=== PATIENT | female | born 1935 ===

== ENCOUNTER → 2018-06-15 13:24 | Outpatient (REF) | payer MEDICARE, SELFPAY ==
[2018-06-15 14:48] LABS: Thyroid Stimulating Hormone 4.22 uIU/mL (0.47-4.68)
== END ==
LOC: LAB 13:24
PROVIDERS: Visit Provider Family Medicine
DX: E03.9 Hypothyroidism, unspecified (principal)
CPT/HCPCS: 84443

== ENCOUNTER → 2018-11-16 12:21 | Outpatient (REF) | payer MEDICARE, SELFPAY | LOC: LAB 12:21 | PROVIDERS: Visit Provider Family Medicine | DX: N39.0 Urinary tract infection, site not specified (principal) | CPT/HCPCS: 87077; 87086; 87186 ==